=== PATIENT | female | born 1965 | race Caucasian/White ===

== ENCOUNTER 2022-12-10 10:39 | Emergency (ER) | payer MEDICAID, MEDICARE, OTHER | END 2022-12-10 12:03 | disposition home or self-care (01) | LOC: CSHERS 10:39 | DX: J06.9 Acute upper respiratory infection, unspecified (principal); Z20.822 Contact with and (suspected) exposure to COVID-19; Z87.891 Personal history of nicotine dependence | CPT/HCPCS: 87081; 87430; 99283; U0003; U0005 ==